=== PATIENT | female | born 1970 | race Caucasian/White ===

== ENCOUNTER 2020-06-09 12:31 | Outpatient (NON) | payer OTHER, SELFPAY ==
[2020-06-10 18:06] LABS: SARS-CoV-2 RNA PCR Negative
== END 2020-06-09 12:32 ==
PROVIDERS: PCP Nurse Practitioner Adult Health; Visit Provider Nurse Practitioner Adult Health
DX: R68.83 Chills (without fever) (principal); Z20.828 Contact with and (suspected) exposure to other viral communicable diseases
CPT/HCPCS: 87635; C9803; U0003

== ENCOUNTER 2021-09-29 12:40 | Outpatient (CLI) | payer OTHER, SELFPAY ==
--- NOTE | ~2021-09-29 | US_ITS ---
EXAMINATION: US venous doppler [facility] EXAM DATE: 09/29/2021 13:27 INDICATION: Left leg pain and swelling. TECHNIQUE: Multiple grayscale, color flow and Doppler images of the left lower extremity deep venous system were obtained and reviewed. There is no prior study for comparison. FINDINGS: The left common femoral, femoral and profunda veins demonstrate normal color flow, respirat ory variation, augmentation and compressibility. Compressibility, color flow confirmed within the le ft popliteal, posterior tibial, peroneal, and greater saphenous veins. IMPRESSION: No left lower extremity deep venous thrombosis. Reviewed, dictated and finalized at location A.
== END 2021-09-29 12:41 | disposition home or self-care (01) ==
PROVIDERS: PCP Nurse Practitioner Adult Health; Visit Provider Nurse Practitioner Adult Health
DX: M79.662 Pain in left lower leg (principal)
CPT/HCPCS: 93971

== ENCOUNTER 2022-05-27 09:39 | Emergency (ER) | payer OTHER, SELFPAY ==
[2022-05-27 09:43] VITALS: BP 126/59; PULSE 90; RESP 18; TEMP 36.9; O2SAT 100
--- NOTE | 2022-05-27 09:58 | ED.ANIMALBIT ---
HPI - Animal Bite General Chief Complaint: Animal Bite Stated Complaint: dog bite to face Time Seen by Provider: 05/27/22 09:46 History of Present Illness HPI narrative: Patient is a healthy 51-year-old female here for evaluation of a dog bite to her face. Patient states that she was breaking up a dog fight between her dog and another dog, when her dog who is fully vaccinated jumped up and bit her face. Patient has several abrasions to the right cheek with no active bleeding. Her tetanus is up-to-date as of 3 years ago. Patient took 2 ibuprofen prior to arrival with good relief of her pain. No further injury sustained in the accident. Related Data Home Medications Medication Instructions Recorded Confirmed amitriptyline 10 mg tablet 10 mg PO QHS 07/27/21 05/23/22 montelukast 10 mg tablet 10 mg PO DAILY 07/27/21 05/23/22 Allergies Allergy/AdvReac Type Severity Reaction Status Date / Time No Known Allergies Allergy Verified 05/27/22 09:48 Review of Systems Review of Systems: Gen.: Denies fevers or chills Eyes: Denies eye pain or visual change ENT: Denies congestion Respiratory: Denies shortness of breath or cough CV: Denies chest pain or palpitations GI: Denies abdominal pain nausea, emesis or diarrhea denies burning, urgency, frequency or hematuria Musculoskeletal: Denies back pain or muscle pain Neuro: Denies numbness, tingling, weakness or focal weakness Skin: Reports dog bite to right cheek. Except as documented, all other systems reviewed and negative PMFSH Past Medical History Medical History Eczema Herpes History of hysterosalpingogram 2007 History of in vitro fertilization IVF cycles 06/01, 10/31, 03/03, 03/04 Vulvodynia Surgical History Surgical History Delivery by section (~07/08/11) Primary - vulvar lesion (unknown HSV at time of procedure) - culture was negative H/O gynecological procedure (~2008) removal redundant perineal tissue - acrochordon (skin tag, firoepithelial polyp) H/O gynecological procedure Ovarian cyst aspiration History of hysteroscopy 08/27/2010 laparoscopy & hysteroscopy - infertility Family History Family History Mother Diabetes mellitus Breast cancer Grandparent Alzheimers disease Malignant tumor of esophagus Father Heart valve replaced Aneurysm Social History Social History Smoking status: Former smoker Tobacco type: cigarettes Alcohol intake: current Alcohol use details: one glass wine monthly Substance use: never Substance use type: does not use Additional occupation/education comments: [employer] Gender identity (if verbalized by the patient): Female Sexual Orientation (if Verbalized by the Patient): Straight or Heterosexual Spiritual care concerns: No Exam Narrative: Gen: Alert, oriented, no acute disease Eyes: EOMI, no icterus Pulm: Respirations even and unlabored, symmetric thorax expansion, no audible stridor or visible cyanosis CV: Regular rate per telemetry GI: No distension, no voluntary/involuntary guarding Neuro: AOx4, moves all extremities without apparent difficulty or weakness, follows commands Skin: Patient has numerous superficial abrasions to the right cheek with no active bleeding, there is one linear 0.5 cm laceration just superior to her right lip that has no active bleeding. No abrasions to lips Psych: Normal mood/affect, insight/judgement good, adequate fund of knowledge, recent/remote memory intact Course Vital Signs Vital signs: Vital Signs Temperature 98.4 F 05/27/22 09:43 Pulse Rate 90 05/27/22 09:43 Respiratory Rate 18 05/27/22 09:43 Blood Pressure 126/59 L 05/27/22 09:43 Pulse Oximetry 100 05/27/22 09:43 Oxygen Delivery Room Air 1
--- NOTE | 2022-05-27 10:16 | PC.NURSE ---
Facial wounds irrigated with normal saline and neosporin ointment applied.
== END 2022-05-27 10:25 | disposition home or self-care (01) ==
LOC: ANHED 10:05
PROVIDERS: Emergency Provider Physician Assistant; PCP Family Medicine
DX: S01.451A Open bite of right cheek and temporomandibular area, initial encounter (principal); Z87.891 Personal history of nicotine dependence
CPT/HCPCS: 99283

== ENCOUNTER 2022-06-01 01:36 | Day surgery (SDC) | payer OTHER, SELFPAY ==
[2022-05-23 13:23] VITALS: BMI 31.2
[2022-06-01 08:27] VITALS: BP 90/32; PULSE 78; RESP 20; TEMP 36.4; O2SAT 97; BMI 30.9
[2022-06-01] MEDS: LACTATED RINGERS 1,000 ML 150 ML IV CONT (08:48)
[2022-06-01 09:01] VITALS: BP 92/58
--- NOTE | 2022-06-01 09:09 | WPDANESEPPF ---
Anes - Initial Pre Proc Eval Procedure: Operation Date: 06/01/22 09:45 Proposed Procedures p Screening Colonoscopy - Salvador Murillo MD Date/Time: 06/01/22 09:09 Surgeon: Salvador Murillo MD Pre Op Diagnosis: neoplasm screening Patient Data Age: 51 Gender: F Height: 1.7 m Weight: 89.7 kg Last Vital Signs Temp 97.5 F L 06/01/22 08:27 Pulse 78 06/01/22 08:27 Resp 20 06/01/22 08:27 BP 92/58 L 06/01/22 09:01 Pulse Ox 97 06/01/22 08:27 O2 Del Method Room Air 06/01/22 08:27 Allergies Allergy/AdvReac Type Severity Reaction Status Date / Time No Known Allergies Allergy Verified 06/01/22 08:26 Home Medications Medication Instructions Recorded Confirmed Type amitriptyline 10 mg tablet 10 mg PO QHS 07/27/21 06/01/22 History montelukast 10 mg tablet 10 mg PO DAILY 07/27/21 06/01/22 History norethindrone acetate 1 mg-ethinyl 1 tablet PO DAILY 0 days #63 tabs 10/12/21 06/01/22 Rx estradiol 20 mcg tablet Patient hx anesthesia problems: none Family hx anesthesia problems: none Results Review: All pre-operative results and documents have been reviewed as part of the pre-operative evaluation. [facility] Past Medical History Medical History Eczema Herpes History of hysterosalpingogram 2007 History of in vitro fertilization IVF cycles 06/01, 10/31, 03/03, 03/04 Vulvodynia Surgical History Surgical History Delivery by section (~07/08/11) Primary - vulvar lesion (unknown HSV at time of procedure) - culture was negative H/O gynecological procedure (~2008) removal redundant perineal tissue - acrochordon (skin tag, firoepithelial polyp) H/O gynecological procedure Ovarian cyst aspiration History of hysteroscopy 08/27/2010 laparoscopy & hysteroscopy - infertility Family History Family History Mother Diabetes mellitus Breast cancer Grandparent Alzheimers disease Malignant tumor of esophagus Father Heart valve replaced Aneurysm Social History Social History Smoking status: Former smoker Tobacco type: cigarettes Alcohol intake: current Alcohol use details: one glass wine monthly Substance use: never Substance use type: does not use Living arrangements: with family Additional occupation/education comments: [employer] Gender identity (if verbalized by the patient): Female Sexual Orientation (if Verbalized by the Patient): Straight or Heterosexual Spiritual care concerns: No Anes - Eval Final PreProcedure Day of Procedure 06/01/22 09:09 Patient weight: obese Heart: regular rate and rhythm Lungs: clear to auscultation Airway: Mallampati scale class II Neurological: alert and oriented Last oral intake: >/= 8 hours ASA classification: II Emergent: no Anesthetic plan: proceed Anesthesia type and monitoring: general GIVS and standard monitoring Results Review: All pre-operative results and documents have been reviewed as part of the pre-operative evaluation. Informed Consent: The patient's anesthetic plan and its attendant risks and benefits were discussed with the patient/family/POA. Questions were solicited and answers provided to the satisfaction of the patient/family/POA.
--- NOTE | 2022-06-01 09:16 | PM.HPGS ---
History of Present Illness History of Present Illness Consent: Risks, benefits, and alternatives have been discussed and questions answered. Patient agrees to proceed with procedure. Chief complaint: neoplasm screening Narrative: Layla Agee is a 51 year old female here for first colonoscopy, brother with colon cancer Review of Systems Constitutional: Constitutional: Denies headache(s) and Denies weakness Eyes: Eyes: Denies blurry vision ENT: Reports Normal hearing present, Denies headache(s) and Denies neck pain Cardiovascular: Cardiovascular: Denies chest pain and Denies dyspnea Respiratory: Respiratory: Denies dyspnea Gastrointestinal: Gastrointestinal: Reports no additional gastrointestinal complaints Genitourinary: Genitourinary: Denies dysuria Musculoskeletal: Musculoskeletal: Denies neck pain Integumentary/Breasts: Skin/Breast: Denies dry skin Neurologic: Reports Normal hearing present, Denies headache(s) and Denies weakness Psychiatric: Psychiatric: Denies anxiety Endocrine: Endocrine: Denies change in body appearance Hematologic/Lymphatic: Hematologic/Lymphatic: Denies easy bleeding Allergic/Immunologic: Allergic/Immunologic: Denies urticaria PMFSH Past Medical History Medical History (Updated 06/01/22 @ 09:17 by Salvador Murillo MD) Eczema Family history of colon cancer Herpes History of hysterosalpingogram 2007 History of in vitro fertilization IVF cycles 06/01, 10/31, 03/03, 03/04 Vulvodynia Surgical History Surgical History Delivery by section (~07/08/11) Primary - vulvar lesion (unknown HSV at time of procedure) - culture was negative H/O gynecological procedure (~2008) removal redundant perineal tissue - acrochordon (skin tag, firoepithelial polyp) H/O gynecological procedure Ovarian cyst aspiration History of hysteroscopy 08/27/2010 laparoscopy & hysteroscopy - infertility Family History Family History Mother Diabetes mellitus Breast cancer Grandparent Alzheimers disease Malignant tumor of esophagus Father Heart valve replaced Aneurysm Social History Social History Smoking status: Former smoker Tobacco type: cigarettes Alcohol intake: current Alcohol use details: one glass wine monthly Substance use: never Substance use type: does not use Living arrangements: with family Additional occupation/education comments: [employer] Gender identity (if verbalized by the patient): Female Sexual Orientation (if Verbalized by the Patient): Straight or Heterosexual Spiritual care concerns: No Meds Home Medications and Allergies Home Medications Medication Instructions Recorded Confirmed Type amitriptyline 10 mg tablet 10 mg PO QHS 07/27/21 06/01/22 History montelukast 10 mg tablet 10 mg PO DAILY 07/27/21 06/01/22 History norethindrone acetate 1 mg-ethinyl 1 tablet PO DAILY 0 days #63 tabs 10/12/21 06/01/22 Rx estradiol 20 mcg tablet Allergies Allergy/AdvReac Type Severity Reaction Status Date / Time No Known Allergies Allergy Verified 06/01/22 08:26 Vital Signs Vital Signs - 24 hr 06/01/22 08:27 06/01/22 09:01 Temperature 97.5 F L Pulse Rate 78 Respiratory Rate 20 Blood Pressure 90/32 L 92/58 L Pulse Oximetry 97 Oxygen Delivery Room Air Exam Const: General: comfortable and no acute distress HENMT: Face/Nose/Sinus: Normal nares present Eyes: General: appearance normal, both eyes and all related structures Neck: Neck: no JVD Resp: Auscultation: clear to auscultation bilaterally Cardio: Rate: regular rate Rhythm: regular rhythm GI: Inspection: non-distended GI Palp: Yes Soft to palpation Skin: General skin exam: normal color Neuro: General: gait normal Speech: normal speech E
[2022-06-01 09:38] VITALS: BP 99/63; PULSE 70; RESP 20; O2SAT 100
[2022-06-01 09:48] VITALS: BP 98/66; PULSE 63; RESP 19; O2SAT 100
[2022-06-01 09:58] VITALS: BP 109/67; PULSE 60; RESP 18; O2SAT 100
== END 2022-06-01 10:06 | disposition home or self-care (01) ==
PROVIDERS: PCP Family Medicine; Visit Provider Internal Medicine Gastroenterology
PROC: 0DJD8ZZ Inspection of Lower Intestinal Tract, Via Natural or Artificial Opening Endoscopic (ICD-10-PCS; CPT 45378; principal; 2022-06-01 09:45)
DX: Z12.11 Encounter for screening for malignant neoplasm of colon (principal); K64.8 Other hemorrhoids; Z80.0 Family history of malignant neoplasm of digestive organs; Z87.891 Personal history of nicotine dependence; E66.9 Obesity, unspecified; Z68.31 Body mass index [BMI] 31.0-31.9, adult
CPT/HCPCS: 45378; J2704; J7120

== ENCOUNTER 2023-09-04 17:31 | Outpatient (CLI) | payer OTHER, SELFPAY ==
[2023-09-07 06:12] LABS: FSH 53.1 mIU/mL (***); Progesterone <0.2 ng/mL (***)
[2023-09-12] LABS: Estradiol, Ultrasensitive 6 pg/mL
== END 2023-09-04 17:32 | disposition home or self-care (01) ==
LOC: ANHLAB 17:32
PROVIDERS: PCP Family Medicine; Visit Provider Obstetrics & Gynecology
DX: R23.2 Flushing (principal); N95.1 Menopausal and female climacteric states
CPT/HCPCS: 36415; 82670; 83001; 84144

== ENCOUNTER 2024-12-24 14:54 | Emergency (ER) | payer OTHER, SELFPAY ==
[2024-12-24 15:08] VITALS: BP 101/52; PULSE 92; RESP 16; TEMP 36.6; O2SAT 100
--- NOTE | 2024-12-24 15:36 | ED_ITS ---
HPI - General Adult General Chief complaint: Upper Respiratory Infection Stated complaint: Low Fever for 3 weeks Time Seen by Provider: 12/24/24 15:50 Mode of arrival: ambulatory Limitations: no limitations History of Present Illness HPI narrative: 54-year-old female presents concern for low-grade fever for 1 month. She reports shortly after her fever started she had cold symptoms, runny nose, stuffy nose, sore throat, cough. Reports those symptoms mostly resolved but are still mild. She reports she has had low-grade fever around 99.5 persistently for 1 month. She reports prior to all this starting she was camping and hold off for tics off her right foot. She reports she has a rash with new spots involving since that time. Related Data Home Medications ?Medication ?Instructions ?Recorded ?Confirmed ?Last Taken ?Type sertraline 50 mg tablet (Zoloft) 50 mg PO DAILY 08/23/23 08/27/24 Unknown History cetirizine 10 mg capsule (Zyrtec) 10 mg PO DAILY PRN 08/27/24 08/27/24 Unknown History nortriptyline 25 mg capsule mg 12/24/24 Unknown History Allergies Allergy/AdvReac Type Severity Reaction Status Date / Time No Known Allergies Allergy Verified 12/24/24 15:09 Review of Systems Review of Systems: CONSTITUTIONAL: Reports malaise, low-grade fever, chills EYES: Denies visual changes, redness, or discharge. ENT: Reports history of mild rhinorrhea, congestion, or sore throat. CARDIOVASCULAR: Denies chest pain, palpitations, or edema. RESPIRATORY: Reports mild cough. Denies dyspnea. GASTROINTESTINAL: Denies abdominal pain, nausea, vomiting, diarrhea SKIN: Reports rash MUSCULOSKELETAL: Denies back pain, joint pain, or myalgia. NEUROLOGIC: Denies numbness, weakness, or headache. All systems reviewed & are unremarkable except as noted in HPI and below PMFSH Past Medical History Medical History Screening mammogram, encounter for Family history of colon cancer History of hysterosalpingogram 2007 History of in vitro fertilization IVF cycles 06/01, 10/31, 03/03, 03/04 Eczema Herpes Vulvodynia Surgical History Surgical History H/O gynecological procedure Ovarian cyst aspiration History of hysteroscopy 08/27/2010 laparoscopy & hysteroscopy - infertility Delivery by section (~07/08/11) Primary - vulvar lesion (unknown HSV at time of procedure) - culture was negative H/O gynecological procedure (~2008) removal redundant perineal tissue - acrochordon (skin tag, firoepithelial polyp) Family History Family History Mother Diabetes mellitus Breast cancer Grandparent Alzheimers disease Malignant tumor of esophagus Father Heart valve replaced Aneurysm Sibling Carcinoma of colon, Onset Age: 47 brother Social History Social History (Updated 08/27/24 @ 09:20 by Bhavin Brewer MA) Smoking status: Former smoker Tobacco type: cigarettes Alcohol intake: never Substance use: never Substance use type: does not use Do You Feel Safe in your Home?: Yes Lack of Transportation: No Lack of Food: Never True Current Housing: I Have Housing Concerned About Future Housing: No Difficulty Paying Gas/Electric Bills: No Difficulty Paying for Meds: No Currently Unemployed: No Education: Master's Degree or Higher Difficulty w/ Childcare or Family Care: No Living arrangements: other Additional living arrangements comments: Occupation/Education: occupation Additional occupation/education comments: [employer] Gender identity (if verbalized by the patient): Female Sexual Orientation (if Verbalized by the Patient): Straight or Heterosexual Spiritual care concerns: No Comments At time of signature, agree with nursing past medical, surgical, social and family history. There is no relevant family history pertinent to the presenting complaint Exam Narrative: GENERAL: Well-appearing, well-nourished, and in no acute distress. HEAD: Normocephalic, atraumatic. EYES: PERRLA, sclera clear, and EOMI. No nystagmus. ENT: Nares clear, turbinates erythematous. Mucous membranes moist. TM pearly hoffman with sharp light reflex bilaterally; no tragal tenderness. Oropharynx without erythema or lesions. Tonsils not enlarged and without exudate. NECK: Supple. CHEST: No respiratory distress. Clear to auscultation. No bony deformities, no asymmetry. Speaks in full sentences. HEART: Regular rate and rhythm. No murmur heard. Normal peripheral pulses. EXTREMITIES: Normal range of motion. No edema. Normal strength and sensation. SKIN: Warm, dry. Raised irregular erythematous non-annular Patches noted on the arms and legs. Three linear scabs noted to the dorsal right foot with mild surrounding erythema at the tick bite sites NEURO: Alert and oriented x3. No focal deficits. Cranial nerves II through XII grossly intact PSYCH: Normal mood and affect Course Course Emergency Course: Patient is aware of diagnosis, understands and agrees to treatment plan. Anticipatory guidance given. Patient agrees to follow-up as directed and is aware of reasons to seek care at the emergency department. Portions of this record may have been created with voice recognition software Level of Care: [facility] Visit Vital Signs Vital signs: Vital Signs Temperature 97.9 F 12/24/24 15:08 Pulse Rate 92 12/24/24 15:08 Respiratory Rate 16 12/24/24 15:08 Blood Pressure 101/52 L 12/24/24 15:08 Pulse Oximetry 100 12/24/24 15:08 Temperature 97.9 F 12/24/24 15:08 Pulse Rate 92 12/24/24 15:08 Respiratory Rate 16 12/24/24 15:08 Blood Pressure 101/52 L 12/24/24 15:08 Pulse Oximetry 100 12/24/24 15:08 Reviewed. Medical Decision Making MDM Narrative Medical decision making narrative: The patient was evaluated by myself in the [facility]. History is obtained from patient who is an independent historian and physical exam was performed.? Available medical records were reviewed at this time. ? Exam findings show no acute concerns or changes; patient is non-toxic appearing and is in no distress. Patient is appropriate for outpatient treatment and follow-up. ? I have evaluated and discussed social determinants of health with the patient that could potentially impact subsequent diagnosis and treatment plans. ? Differential diagnosis and treatment plan were discussed with the patient. Patient agrees with discussion and after shared medical decision making agrees with plan of care. All questions were answered to the patient's satisfaction. Differential Diagnosis Differential Diagnosis: Upper respiratory infection, Lyme disease, [place] spotted fever, allergic reaction, bacterial skin infection Vital Signs Vital Signs: Vital Signs Temperature 97.9 F 12/24/24 15:08 Pulse Rate 92 12/24/24 15:08 Respiratory Rate 16 12/24/24 15:08 Blood Pressure 101/52 L 12/24/24 15:08 Pulse Oximetry 100 12/24/24 15:08 Temperature 97.9 F 12/24/24 15:08 Pulse Rate 92 12/24/24 15:08 Respiratory Rate 16 12/24/24 15:08 Blood Pressure 101/52 L 12/24/24 15:08 Pulse Oximetry 100 12/24/24 15:08 Critical Care Time Critical Care Time Critical Care Time: No Discharge Plan Discharge Clinical Impression: Tick bite, Rash, Low grade fever Patient Disposition: Home Condition: Stable Instructions: Antibiotic Form, Lyme Disease (ED) Additional Instructions: 1) Please follow-up with your primary care doctor in the next 1-2 days. 2) If you have any worsening of symptoms or any other urgent concerns please go to the ER. 3) Please take medications as prescribed and continue taking your home medications as usual. 4) Please read and follow information included in discharge instructions. Patient Language: Mohawk Prescriptions: New doxycycline monohydrate 100 mg tablet 100 mg PO BID 10 Days Qty: 20 0RF No Action nortriptyline 25 mg capsule sertraline [Zoloft] 50 mg tablet 50 mg PO DAILY Zyrtec 10 mg capsule 10 mg PO DAILY PRN progesterone micronized 200 mg capsule 200 mg PO QHS Qty: 90 3RF estradiol [Vivelle-Dot] 0.05 mg/24 hr patch semiweekly 1 patch transdermal 2XW Qty: 24 4RF Rx Instructions: apply 1 patch for 3 days alternating with 1 patch for 4 days each week Follow-up/Referrals: Sal,Oliva Dawson, REROLLING MACHINE OPERATOR [Primary Care Provider] - Time of Disposition: 16:00
== END 2024-12-24 16:02 | disposition home or self-care (01) ==
PROVIDERS: Emergency Provider Nurse Practitioner
DX: S90.861A Insect bite (nonvenomous), right foot, initial encounter (principal); W57.XXXA Bitten or stung by nonvenomous insect and other nonvenomous arthropods, initial encounter; R21 Rash and other nonspecific skin eruption; R51.9 Headache, unspecified; Z87.891 Personal history of nicotine dependence
CPT/HCPCS: 99213; G0463

== ENCOUNTER 2025-01-14 09:18 | Emergency (ER) | payer OTHER, SELFPAY ==
[2025-01-14 09:28] VITALS: BP 99/49; PULSE 89; RESP 16; TEMP 36.3; O2SAT 100
--- NOTE | 2025-01-14 10:02 | ED_ITS ---
HPI - URI/Sore Throat General Chief Complaint: Upper Respiratory Infection Stated Complaint: Low-Grade Fever, Tired Time Seen by Provider: 01/14/25 09:45 Source: patient and RN notes reviewed Mode of arrival: ambulatory Limitations: no limitations History of Present Illness HPI Narrative: 54-year-old female presents Express Care complaining of low-grade fevers and fatigue for over 2 months. Patient was recently here approximately 3 weeks ago for concern of a tick-borne illness. Patient had tick bites back at the end of October to her right foot, she developed low-grade fevers, fatigue, and her scattered rash on her body she states patient was treated with doxycycline for 10 days she felt like her symptoms were getting better. However patient says symptoms are still persisting. Patient says her low-grade fevers 99 F. Patient denies any muscle aches, body aches, joint pain, nausea, vomiting, diarrhea, abdominal pain, headaches, chest pain, shortness of breath, cough, upper respiratory symptoms, focal weakness, confusion, seizures, loss conscious, or any other symptoms. Patient has a follow-up with her PCP at the end of December. Related Data Home Medications ?Medication ?Instructions ?Recorded ?Confirmed ?Last Taken ?Type sertraline 50 mg tablet (Zoloft) 50 mg PO DAILY 08/23/23 08/27/24 Unknown History cetirizine 10 mg capsule (Zyrtec) 10 mg PO DAILY PRN 08/27/24 08/27/24 Unknown History nortriptyline 25 mg capsule mg 12/24/24 Unknown History Allergies Allergy/AdvReac Type Severity Reaction Status Date / Time No Known Allergies Allergy Verified 01/14/25 09:29 Review of Systems Review of Systems: CONSTITUTIONAL: Denies body aches, chills, or sweats. Positive for tactile fevers and fatigue. EYES: Denies visual changes, redness, or discharge. ENT: Denies rhinorrhea, congestion, sore throat, or otalgia. CARDIOVASCULAR: Denies chest pain, palpitations, or edema. RESPIRATORY: Denies cough or dyspnea. GASTROINTESTINAL: Denies abdominal pain, nausea, vomiting, or diarrhea. GENITOURINARY: Denies dysuria or hematuria. SKIN: Denies rash or itching. MUSCULOSKELETAL: Denies back pain, joint pain, or myalgia. NEUROLOGIC: Denies headache, numbness, focal weakness, slurred speech, seizures, loss of conscious, or weakness. PSYCHIATRIC: Denies anxiety or depression. All other systems reviewed are negative, except as documented in HPI. [facility] Past Medical History Medical History Screening mammogram, encounter for Family history of colon cancer History of hysterosalpingogram 2007 History of in vitro fertilization IVF cycles 06/01, 10/31, 03/03, 03/04 Eczema Herpes Vulvodynia Surgical History Surgical History H/O gynecological procedure Ovarian cyst aspiration History of hysteroscopy 08/27/2010 laparoscopy & hysteroscopy - infertility Delivery by section (~07/08/11) Primary - vulvar lesion (unknown HSV at time of procedure) - culture was negative H/O gynecological procedure (~2008) removal redundant perineal tissue - acrochordon (skin tag, firoepithelial polyp) Family History Family History Mother Diabetes mellitus Breast cancer Grandparent Alzheimers disease Malignant tumor of esophagus Father Heart valve replaced Aneurysm Sibling Carcinoma of colon, Onset Age: 47 brother Social History Social History Smoking status: Former smoker Tobacco type: cigarettes Alcohol intake: never Substance use: never Substance use type: does not use Do You Feel Safe in your Home?: Yes Lack of Transportation: No Lack of Food: Never True Current Housing: I Have Housing Concerned About Future Housing: No Difficulty Paying Gas/Electric Bills: No Difficulty Paying for Meds: No Currently Unemployed: No Education: Master's Degree or Higher Difficulty w/ Childcare or Family Care: No Living arrangements: other Additional living arrangements comments: Occupation/Education: occupation Additional occupation/education comments: [employer] Gender identity (if verbalized by the patient): Female Sexual Orientation (if Verbalized by the Patient): Straight or Heterosexual Spiritual care concerns: No Comments At the time of my signature, I reviewed and agree with the nursing past medical, surgical, social, and family history. There is no relevant family history pertinent to the patient complaint. Exam Narrative: GENERAL: This is a well-nourished, well-developed adult, in no apparent distress. They are non ill-appearing, nontoxic appearing. HEAD: normocephalic, atraumatic. EYES: Sclera clear/white. Conjunctiva normal. Vision is grossly intact. Extraocular movements intact EARS: External ears normal, auditory canals clear and without drainage, TMs normal without perforation. Hearing grossly intact. NOSE: External nose normal with no obvious nasal discharge, nasal turbinates without redness, no rhinorrhea. THROAT: Mucous membranes moist, posterior pharynx clear, without erythema or swelling. Uvula midline. NECK: Neck supple, non-tender with mild cervical lymphadenopathy, no masses or thyromegaly. CARDIOVASCULAR: Regular rate and rhythm without murmurs, gallops, or rubs. RESPIRATORY: Clear to auscultation. Breath sounds equal bilaterally. No wheezes, rales, or rhonchi. SKIN: Resolving rash present to left lower medial thigh, no redness, no swelling, no drainage, no pain. Right foot: Multiple small puncture wounds to the distal right foot, 1 is scabbed over, evidence of redness, swelling, pain, or drainage. They appear to be healing well. No other suspicious rashes or lesions present. NEURO: awake, alert, and oriented to person, place and time. There were no obvious focal neurologic abnormalities. EXTREMITIES: No joint tenderness, effusion, or edema noted. BACK: Nontender without deformity. No CVA tenderness. Course Course Emergency Course: Portions of this record may have been created with voice recognition software Level of Care: Express Care Visit Vital Signs Vital signs: Vital Signs Temperature 97.4 F L 01/14/25 09:28 Pulse Rate 89 01/14/25 09:28 Respiratory Rate 16 01/14/25 09:28 Blood Pressure 99/49 L 01/14/25 09:28 Pulse Oximetry 100 01/14/25 09:28 Temperature 97.4 F L 01/14/25 09:28 Pulse Rate 89 01/14/25 09:28 Respiratory Rate 16 01/14/25 09:28 Blood Pressure 99/49 L 01/14/25 09:28 Pulse Oximetry 100 01/14/25 09:28 Reviewed MDM - URI/Sore Throat MDM Narrative Medical decision making narrative: No evidence of infection. Rapid COVID and flu were negative. Patient's symptoms are Fe, unsure if she had Lyme disease or tick borne illness when she 1st presented with symptoms her she was treated with doxycycline. Symptoms could be a post Lyme disease syndrome. Given the presence a resolving rash persistent symptoms will give her another course of doxycycline till she sees her primary care provider. Offered patient ER transfer for further evaluation, management of her symptoms, and possible lab work today and she declined. Patient nontoxic-appearing no apparent distress. Patient hemodynamically stable. Strict ER return precautions discussed if symptoms worsen prior to her PCP visit. Discussed physical exam findings. Advised supportive measures and signs/symptoms to go to the ER. Pt is appropriate for outpt treatment and f/u. Differential Diagnosis Differential diagnosis: Likely upper respiratory infection, viral infection and other (Tick-borne illness, post Lyme disease syndrome, menopause, anemia) Lab Data Attestation: I reviewed the patient's lab results. Labs: Lab Results 01/14/25 Range/Units 10:16 POC Influenza A Ag Negative (Negative) POC Influenza B Ag Negative (Negative) POC SARS CoV-2 Ag Negative (Negative) Critical Care Time Critical Care Time Critical Care Time: No Discharge Plan Discharge Clinical Impression: Fatigue Qualifiers: Fatigue type: unspecified Qualified Code(s): R53.83 - Other fatigue Tick bite Qualifiers: Encounter type: subsequent encounter Site of tick bite: foot Laterality: right Qualified Code(s): S90.861D - Insect bite (nonvenomous), right foot, subsequent encounter Patient Disposition: Home Condition: Stable Instructions: Antibiotic Form, Tick Bite (ED) Additional Instructions: Your COVID and flu were negative today. It is unclear if you had Lyme disease however there is a post Lyme disease syndrome that may persist up to year after infection of Lyme disease that may cause fatigue. Take doxycycline as directed. Please wear sunscreen while taking doxycycline if you are going to be outside. Follow-up with your PCP next week. If your symptoms worsen, he developed body aches, muscle aches, joint pain, headaches, abdominal pain, nausea, vomiting, chest pains, breathing problems, or any serious concerns please go to the ER immediately. Patient Language: Romanian Prescriptions: New doxycycline monohydrate 100 mg capsule 100 mg PO BID 10 Days Qty: 20 0RF No Action nortriptyline 25 mg capsule sertraline [Zoloft] 50 mg tablet 50 mg PO DAILY Zyrtec 10 mg capsule 10 mg PO DAILY PRN progesterone micronized 200 mg capsule 200 mg PO QHS Qty: 90 3RF estradiol [Vivelle-Dot] 0.05 mg/24 hr patch semiweekly 1 patch transdermal 2XW Qty: 24 4RF Rx Instructions: apply 1 patch for 3 days alternating with 1 patch for 4 days each week Follow-up/Referrals: Sal,Oliva Dawson, [employer] [Primary Care Provider] - Time of Disposition: 10:19
[2025-01-14 10:18] LABS: EDCOVIDSCREEN Negative (Negative); EDINFLUASCREEN Negative (Negative); EDINFLUBSCREEN Negative (Negative)
== END 2025-01-14 10:24 | disposition home or self-care (01) ==
DX: R53.83 Other fatigue (principal); S90.861D Insect bite (nonvenomous), right foot, subsequent encounter; W57.XXXD Bitten or stung by nonvenomous insect and other nonvenomous arthropods, subsequent encounter; Z20.822 Contact with and (suspected) exposure to COVID-19
CPT/HCPCS: 87426; 87804; 99213; G0463